=== PATIENT | female | born 1985 ===

== ENCOUNTER 2017-05-24 07:51 | Inpatient (IN) | payer MEDICAID, SELFPAY ==
[2017-05-24 08:49] VITALS: BMI 33.8
[2017-05-24] MEDS ORDERED: Lactated Ringer's 1,000 ML IV SCH ×2 (08:49→11:00)
--- NOTE | 2017-05-24 08:53 | OBHP ---
Datetime: 05/24/2017 08:33 IP Adm Impression: Term, intrauterine IP Admit Plan: Observation/Evaluation Admit Comment, IP Provider: 31 yo edc 05/27 by lmp _ 12wk us presents w/ c/o painful ctsx sinc e 6am, onst of on 05/23 @ 17:00. Denies srom or decreased fm pmhx: denies pshx: denies nkda medic: pnv; feso4 shx: denies etoh, drugs or tobacco I:39.4wks Labor Eval FHR with possible early and late decels P: observe for labor Doppler readjusted- check FHR Pt signed off to dr amgana Pelvic Type - PN: Adequate Extremities - PN: Normal Abdomen - PN: Normal Lungs - PN: Normal Heart - PN: Normal Neurologic - PN: Normal HEENT - PN: Normal General - PN: Normal Presentation-Admit: Vertex FHR - Baseline A Provider: 140 Comments, ACOG Physical Exam: gbs neg/ri/ rh+ Vital Signs Provider: Within Normal Limits IP Chief Complaint: Uterine contractions Dilatation, Provider: 3 Genitourinary Exam: Normal
[2017-05-24] MEDS ORDERED: Bupivacaine HCl 0.25% PF (10 ml) Inj ONE (09:39)
[2017-05-24] MEDS ORDERED: Fentanyl/Bupivacaine HCl 250 ML EPI ONE (09:39)
--- NOTE | 2017-05-24 09:48 | OBADHP ---
Datetime: 05/24/2017 09:23 Admit Comment, IP Provider: 31 year old at 39+4wks GA, EDC 7/5 by LMP _ 12wk us presents wit h painful ctx since 600am, initial onset of contractions was on 05/23 @ 17:00. Admits Good movem ent. Denies VB, LOF. OBHX: , no complications with previous or current labs: GBS: neg, GC/CT: neg, HepBsAg: neg, HIV/RPR negative, RH+, Rubella immune, PMH: denies Pshx: denies NKDA medic: pnv; feso4 shx: denies etoh, drugs or tobacco obhx: x2 A: 31 year old at 39+4wks GA P:admit to unit -labor protocol -cbc, cmp, type and screen -LR 1L bolus -anesthesia consult for epidural Marilee Cassidy PGY1 OB Hsopitalist Addendum: Pt seen by me. Agree w/ above. 31 yo at 39+4 wks in labor. Ane sthesia placing epidural now. FHT reassuring. GBS negative. (ES) Extremities - PN: Normal Abdomen - PN: Normal Lungs - PN: Normal Heart - PN: Normal HEENT - PN: Normal General - PN: Normal IP Hx Assessment: The History has been Reviewed and is Current Vital Signs Provider: Reviewed; Within Normal Limits IP Chief Complaint: Uterine contractions NICHD Variability Prov Fetus A: Moderate 6-25bpm NICHD Decel Fetus A IP Provider: None EGA AdmitDate IP: 39.4 IP Adm Impression: Term, intrauterine IP Admit Plan: Admit to unit; Initiate labor protocol Datetime: 05/24/2017 08:33 Pelvic Type - PN: Adequate Neurologic - PN: Normal Presentation-Admit: Vertex FHR - Baseline A Provider: 140 Comments, ACOG Physical Exam: gbs neg/ri/ rh+ Dilatation, Provider: 3 Genitourinary Exam: Normal
[2017-05-24 09:58] LABS: BASO % 0.3 % (0.0-2.0); EOS # 0.2 K/uL (0.0-0.7); EOS % 1.6 % (0.0-4.0); HEMOGLOBIN 11.5 g/dL (12.0-16.0); LYMPH # 2.3 K/uL (1.0-4.3); LYMPH % 19.9 % (20.0-40.0); MEAN CORPUSCULAR HEMOGLOBIN 26.2 pg (27.0-31.0); MEAN CORPUSCULAR HGB CONC 32.6 g/dL (33.0-37.0); MEAN PLATELET VOLUME 9.2 fl (7.2-11.7); MONO # 0.7 K/uL (0.0-0.8); MONO % 5.8 % (0.0-10.0); NEUT # 8.3 K/uL (1.8-7.0); NEUT % 72.4 % (50.0-75.0); RBC 4.4 Mil/uL (3.80-5.20); RED CELL DISTRIBUTION WIDTH 15.4 % (11.5-14.5); WHITE BLOOD COUNT 11.5 K/uL (4.8-10.8)
[2017-05-24 10:11] LABS: ALB/GLOB RATIO 1.1 (1.0-2.1); ALT/SGPT 19 U/L (9-52); AST/SGOT 30 U/L (14-36); BLOOD UREA NITROGEN 6 mg/dl (7-17); CALCIUM 9.7 mg/dL (8.4-10.2); GFR AFRICAN-AMERICAN > 60; GFR NON-AFRICAN AMERICAN > 60
[2017-05-24 10:18] LABS: MEAN CELL VOLUME 80.4 fl (81.0-99.0)
[2017-05-24 14:26] VITALS: BP 138/88; PULSE 99; RESP 20; TEMP 98.3; O2SAT 99
[2017-05-24] MEDS ORDERED: Oxytocin 30 units/LR 500ML 30 U/500 ML BAG IV ONE (15:02)
--- NOTE | 2017-05-24 15:29 | OBPN ---
Datetime: 05/24/2017 15:25 IP Progress Impression: Normal progression of labor IP Procedures: Artificial ROM; Sterile Vag Exam IP Progress Plan: Continue present management Membranes, Provider: Ruptured Amniotic Fluid Color, Provider: Clear IP Progress Note Comment: 31 yo at 39+4 wks in labor FHT reassuring, GBS negative Anticipate VD Vital Signs Provider: Reviewed NICHD Accel Fetus A IP Provider: 15X15 Dilatation, Provider: 10 Effacement, Provider: 100 Station, Provider: -2 NICHD Decel Fetus A IP Provider: Early Datetime: 05/24/2017 09:23 NICHD Variability Prov Fetus A: Moderate 6-25bpm Datetime: 05/24/2017 08:33 FHR - Baseline A Provider: 140 Presentation-Admit: Vertex
[2017-05-24] MEDS ORDERED: Benzocaine/Menthol SPRAY TOP PRN (15:36)
[2017-05-24] MEDS: Oxytocin 30 units/LR 500ML 30 U/500 ML BAG IV SCH ×5 (15:36→17:40)
[2017-05-24] MEDS ORDERED: Oxycodone/Acetaminophen 5/325 mg Tab PO PRN ×2 (15:36)
--- NOTE | 2017-05-24 15:55 | OBDS ---
DELIVERY PERSONNEL Delivery Doctor: Kay Stahl MD Airflight Attendants Supervisor: Rosemary Resident: Christel Cassidy MATERNAL INFORMATION Delivery Anesthesia: Epidural Medications in Delivery: Pitocin 30 units in 500 mls, Lidocain Estimated Blood Loss (ml): 250 Maternal Complications: None Provider Comments: Patient progressed to complete and pushed to deliver a viable female throu gh clear fluid at 15:31. Apgars 9/9, weight of 3305g, 7#4.6 Mouth and nares bulb suctioned. Infant placed on mothers abdomen. Cord was clamped and cut. Cord blood was collected. Placenta delivered spo ntaneously and intact with three vessel cord at 1536. 2nd degree laceration repaired with 2-0 vicryl rapide and 3-0v. Pt and baby tolerated the procedure well. No compliactions. EBL 250mL EBL: 250 cc LABOR SUMMARY EDC: 05/27/2017 00:00 No. Babies in Womb: 1 Labor Anesthesia: Epidural LABOR INFORMATION Onset of Labor: 05/24/2017 05:00 Oxytocin: N/A Group B Beta Strep: Negative Steroids Given: None Reason Steroids Not Administered: Not Applicable VAGINAL DELIVERY Laceration Repair Note: 2nd degree laceration repaired with 2-0 vicryl rapide and 3-0v.
[2017-05-25 06:25] LABS: BASO % 0.3 % (0.0-2.0); EOS # 0.3 K/uL (0.0-0.7); EOS % 1.7 % (0.0-4.0); LYMPH # 3.3 K/uL (1.0-4.3); LYMPH % 21.6 % (20.0-40.0); MEAN CELL VOLUME 80.5 fl (81.0-99.0); MEAN CORPUSCULAR HEMOGLOBIN 26.3 pg (27.0-31.0); MEAN CORPUSCULAR HGB CONC 32.7 g/dL (33.0-37.0); MEAN PLATELET VOLUME 8.5 fl (7.2-11.7); MONO % 6.8 % (0.0-10.0); NEUT # 10.6 K/uL (1.8-7.0); NEUT % 69.6 % (50.0-75.0); RBC 3.42 Mil/uL (3.80-5.20); RED CELL DISTRIBUTION WIDTH 15.3 % (11.5-14.5); WHITE BLOOD COUNT 15.2 K/uL (4.8-10.8)
[2017-05-25] MEDS ORDERED: Multivitamin With Minerals Tab PO SCH (09:00)
--- NOTE | 2017-05-25 22:57 | OBPPN ---
Datetime: 05/25/2017 20:52 PP Pain Prov: Within normal limits PP Nausea Prov: Denies PP Flatus Prov: Yes PP BM Prov: No PP Breasts Prov: Normal PP Heart Prov: Normal PP Lungs Prov: Normal PP Abdomen/Uterus Prov: Normal PP Lochia Prov: Normal PP Vulva/Perineum Prov: Normal PP CVA Tenderness Prov: Normal PP Extremities Prov: Normal PP Impression Prov: Normal progression PP Plan Prov: Continue present management PP Progress Note Prov: 31 yo female on PPD2 initially presented with contraction at weeks 39 +4 days. Pt reports mild pelvic pain controlled with pain meds. ambulating well with no dizziness. pt i s without difficulty. tolerating PO diet well. Lochia is less than menses volume. repor ts passing gas per rectum but no BM yet. Denies fever, chills, nausea, vomiting, dizziness or calf pa in. PE: Gen: AAO X3, resting comfortably with the baby in bed, NAD LUNGS: CTA B/L, no wheezing, rhonchi or rales CVS: RRR, S1, S2 NL ABDOMEN: nontender, +BS, firm fundus at umbilical level, soft, appropriate TTP. EXTREMITIES: No edema, negative Deedee's SIGN, calves non-tender Neuro/psych: AAO X3, no grossly focal deficit, preserved affect and mood. Assessment: 31 yo female s/p delivery on 05/24/17. pt is afebrile, tolerating pain meds an d tolerating PO. Pt will continue monitoting and will be re-evaluated for tomorrow's discharge. OBH ADDENDUM: pt seen _ exmined by me. agree with above assessment and plan. IP PP Procedures: None Vital Signs Provider PP: Reviewed
--- NOTE | 2017-05-26 10:43 | OBDCSUM ---
Datetime: 05/26/2017 08:07 Discharged to, Provider: Home Follow up at, Provider: [facility] Disch Instr Activity: Normal activity Disch Instr Diet: Regular Discharge Instructions, Provider: Routine instructions given Discharge Diagnosis, Provider: Term Delivered Follow up in weeks, Provider: 4-6 weeks Disch Referrals: None Contraception discussed, Prov: Yes Discharge Comment, Provider: DISCHARGE INSTRUCTIONS: Encourage PNV 1 tab po q/day Ibuprofen 600 mg 1 tab po prn q6 if moderate pain . Ambulatory with caution, nothing per vagina, no heavy lifting, avoid stairs, if excessive bleeding or fever without relief from Tylenol go to ED OB Hospitalist on-call...Pt seen on rounds this morning. She feels fine. Tolerating diet/ambulatg ing without difficulty. [place]
--- NOTE | 2017-05-26 10:43 | OBPPN ---
Datetime: 05/26/2017 06:53 PP Pain Prov: Abnormal PP Nausea Prov: Denies PP Flatus Prov: Yes PP Breasts Prov: Not Done PP Heart Prov: Normal PP Lungs Prov: Normal PP Abdomen/Uterus Prov: Normal PP Lochia Prov: Normal PP Vulva/Perineum Prov: Not Done PP CVA Tenderness Prov: Normal PP Extremities Prov: Normal PP Impression Prov: Normal progression PP Plan Prov: Continue present management PP Progress Note Prov: 31 yo female on PPD2 reports moderate pelvic pain despite with pain meds . ambulating well with no dizziness. pt is without difficulty. tolerating PO diet well. Lochia is less than menses volume. reports passing gas per rectum but no BM yet. Denies fever, chill s, nausea, vomiting, dizziness or calf pain. PE: Gen: AAO X3, resting comfortably with the baby in bed, NAD LUNGS: CTA B/L, no wheezing, rhonchi or rales CVS: RRR, S1, S2 NL ABDOMEN: nontender, +BS, firm fundus at umbilical level, soft, appropriate TTP. EXTREMITIES: No edema, negative Deedee's SIGN, calves non-tender Neuro/psych: AAO X3, no grossly focal deficit, preserved affect and mood. Assessment: 31 yo female s/p delivery on 05/24/17. pt reports moderate pain despite on paulette n meds. pt is afebrile and tolerating PO. Pt will continue monitoting and will be discharged today. Sultan Rogers, PGY1 OB Hospitalist on-call...Pt seen on rounds this morning. She feels fine. Tolerating diet/ambulati ng without difficulty. MAHNDO - mundoahrge home and follow up in 6w...FeSO4 for asymptomatic anemia (low MCV) Vital Signs Provider PP: Reviewed
== END 2017-05-26 12:00 | disposition home or self-care (01) | DRG 775 ==
LOC: H.EROB2 07:51 → H.L&D 09:16 → MERGE 09:16 → H.OB/GYN 18:13
PROVIDERS: ADMIT Obstetrics & Gynecology; ATTEND Obstetrics & Gynecology
PROC: 10E0XZZ Delivery of Products of Conception, External Approach (ICD-10-PCS; principal; 2017-05-24)
PROC: 0KQM0ZZ Repair Perineum Muscle, Open Approach (ICD-10-PCS; 2017-05-24)
PROC: 4A1HXCZ Monitoring of Products of Conception, Cardiac Rate, External Approach (ICD-10-PCS; 2017-05-24)
DX: O70.1 Second degree perineal laceration during delivery (principal); Z37.0 Single live birth; D64.9 Anemia, unspecified; O99.02 Anemia complicating childbirth; O77.0 Labor and delivery complicated by meconium in amniotic fluid

== ENCOUNTER 2019-04-19 09:09 | Emergency (ER) | payer SELFPAY ==
[2019-04-19 09:18] VITALS: BMI 31.1
[2019-04-19 09:19] VITALS: RESP 17; TEMP 97.9; O2SAT 99
[2019-04-19] MEDS ORDERED: Sodium Chloride 0.9% 1,000 ML IV STA (10:15)
[2019-04-19] MEDS ORDERED: Iohexol 240 (50 ml) PO ONE (10:23)
[2019-04-19] MEDS ORDERED: Iohexol 240 (50 ml) ONE (10:35)
[2019-04-19 10:52] LABS: BASO % 0.5 % (0.0-2.0); EOS # 0.2 K/uL (0.0-0.7); EOS % 3.2 % (0.0-4.0); HEMOGLOBIN 13.8 g/dL (12.0-16.0); LYMPH # 1.8 K/uL (1.0-4.3); LYMPH % 30.4 % (20.0-40.0); MEAN CELL VOLUME 82.5 fl (81.0-99.0); MEAN CORPUSCULAR HEMOGLOBIN 27.3 pg (27.0-31.0); MEAN CORPUSCULAR HGB CONC 33.1 g/dL (33.0-37.0); MEAN PLATELET VOLUME 7.8 fl (7.2-11.7); MONO # 0.7 K/uL (0.0-0.8); MONO % 11.1 % (0.0-10.0); NEUT # 3.3 K/uL (1.8-7.0); NEUT % 54.8 % (50.0-75.0); RBC 5.04 Mil/uL (3.80-5.20); RED CELL DISTRIBUTION WIDTH 13.5 % (11.5-14.5); WHITE BLOOD COUNT 6.1 K/uL (4.8-10.8)
[2019-04-19 11:02] LABS: ALB/GLOB RATIO 1.3 (1.0-2.1); ALBUMIN 4.5 g/dL (3.5-5.0); ALT/SGPT 33 U/L (9-52); AST/SGOT 31 U/L (14-36); BLOOD UREA NITROGEN 15 mg/dl (7-17); GFR NON-AFRICAN AMERICAN > 60; LIPASE 56 U/L (23-300)
--- NOTE | 2019-04-19 11:15 | ED PDOC ---
HPI: Abdomen Time Seen by Provider: 04/19/19 09:25 Chief Complaint (Nursing): GI Problem Chief Complaint (Provider): abd pain , diarrhea History Per: Mixed Livestock Farmer ([id number]) Onset/Duration Of Symptoms: Days (2), Intermittent Episodes, Gradual Current Symptoms Are (Timing): Still Present Severity: Moderate Location Of Pain/Discomfort: Diffuse Quality Of Discomfort: Cramping Associated Symptoms: Nausea, Diarrhea, Loss Of Appetite. denies: Vomiting Alleviating Factors: None Additional Complaint(s): 33yo female c/o crampy abd pain starting lower abd radiating to upper abd, associated w multiple episodes diarrhea, recently black however took 6 tabs of bismuth salicylate over last 2 days. Denies hematemesis, BRBPR, weakness or urinary symptoms. Past Medical History Reviewed: Historical Data, Nursing Documentation, Vital Signs Vital Signs: Last Vital Signs Temp 97.9 F 04/19/19 09:18 Pulse 69 04/19/19 09:18 Resp 17 04/19/19 09:18 BP 121/84 04/19/19 09:18 Pulse Ox 99 04/19/19 09:18 Primary Care Provider: FAMILY PROVIDER,NO - Medical History PMH: No Chronic Diseases - Surgical History Surgical History: No Surg Hx - Family History Family History: States: Unknown Family Hx - Social History Current smoker - smoking cessation education provided: No - Home Medications Home Medications: Ambulatory Orders Medication Instructions Recorded [id number]/Iron/Folic Acid/Dha 1 each PO DAILY #30 cap 09/24/16 [Prena1 Nae Softgel] Pnv No.95/Ferrous Fum/Folic AC 1 tab PO DAILY MDD 1 05/24/17 [ Vitamin Tablet] Ibuprofen [Motrin Tab] 600 mg PO Q6 PRN #30 tab 05/26/17 Multimineral/Multivitamin 1 tab PO DAILY tab 05/26/17 [Therapeutic-M Tab] Sennosides A and B [Senokot Tab] 17.2 mg PO HS #30 tab 05/26/17 oxyCODONE/Acetaminophen [Percocet 1 tab PO Q4 PRN #20 tab 05/26/17 5/325 mg Tab] Dicyclomine [Bentyl] 10 mg PO QID PRN #12 cap 04/19/19 Ibuprofen [Motrin Tab] 600 mg PO Q6 PRN #15 tab 04/19/19 Loperamide [Loperamide HCl] 2 mg PO QID PRN #15 cap 04/19/19 - Allergies Allergies/Adverse Reactions: Allergies Allergy/AdvReac Type Severity Reaction Status Date / Time No Known Allergies Allergy Verified 04/19/19 09:26 Review of Systems Constitutional: Positive for: Malaise Cardiovascular: Negative for: Chest Pain Respiratory: Negative for: Shortness of Breath Gastrointestinal: Positive for: Nausea, Abdominal Pain, Diarrhea. Negative for: Constipation, Hematochezia, Hematemesis, Rectal Pain Genitourinary Female: Negative for: Dysuria, Hematuria Musculoskeletal: Negative for: Neck Pain, Back Pain Skin: Negative for: Rash, Lesions Neurological: Negative for: Weakness, Numbness Physical Exam - Reviewed Nursing Documentation Reviewed: Yes Vital Signs Reviewed: Yes - Physical Exam Appears: Positive for: Non-toxic, No Acute Distress Head Exam: Positive for: ATRAUMATIC, NORMAL INSPECTION, NORMOCEPHALIC Skin: Positive for: Normal Color, Warm, DRY Eye Exam: Positive for: EOMI, Normal appearance, PERRL ENT: Positive for: Normal ENT Inspection Neck: Positive for: Normal, Painless ROM Cardiovascular/Chest: Positive for: Regular Rate, Rhythm Respiratory: Positive for: CNT, Normal Breath Sounds Gastrointestinal/Abdominal: Positive for: Soft, Tenderness (RLQ). Negative for: Guarding Back: Positive for: Normal Inspection Extremity: Positive for: Normal ROM Neurological/Psych: Positive for: Awake, Alert, Normal Tone, Symmetric/Intact Strength - Laboratory Results Result Diagrams: 04/19/19 10:40 04/19/19 10:40 Lab Results: Total Bilirubin 0.4 mg/dl (0.2-1.3) 04/19/19 10:40 AST 31 U/L (14-36) 04/19/19 10:40 ALT 33 U/L (9-52) 04/19/19 10:40 Alkaline Phosphatase 88 U/L (38-126) 04/19/19 10:40 Total Protein 7.8 G/DL (6.3-8.2) 04/19/19 10:40 Albumin 4.5 g/dL (3.5-5.0) 04/19/19 10:40 Globulin 3.3 gm/dL (2.2-3.9) 04/19/19 10:40 Albumin/Globulin Ratio 1.3 (1.0-2.1) 04/19/19 10:40 Lipase 56 U/L (23-300) 04/19/19 10:40 - ECG O2 Sat by Pulse Oximetry: 99 Medical Decision Making Medical Decision Making: check labs, given RLQ obtain CT abd pelv r/o appendicitis initiate IVF and bentyl labs clinically unremarkable Accession No. : [id number] Patient Name / ID : FANY MASON / [id number] Exam Date : 04/19/2019 12:52:37 ( Approved ) Study Comment : Sex / Age : F / 33Y Creator : Sidney Carranza MD Dictator : Sidney Carranza MD Optical Engineering Manager : Electrical Maintenance Mechanic : Sidney Carranza MD Approver2 : Report Date : 04/19/2019 14:41:06 My Comment : Date of service: 04/19/2019 PROCEDURE: CT Abdomen and Pelvis with contrast HISTORY: RLQ tenderness, diarrea COMPARISON: None. TECHNIQUE: Intravenous contrast dose: 95.2 cc Omnipaque 300. Radiation dose: Total exam DLP = 761.6 for mGy-cm. This CT exam was performed using one or more of the following dose reduction techniques: Automated exposure control, adjustment of the mA and/or kV according to patient size, and/or use of iterative reconstruction technique. FINDINGS: LOWER THORAX: Unremarkable. LIVER: Hepatic steatosis. No focal masses. No intrahepatic bile duct dilatation or perihepatic ascites. GALLBLADDER AND BILE DUCTS: Unremarkable. PANCREAS: Unremarkable. No gross lesion or ductal dilatation. SPLEEN: Unremarkable. ADRENALS: Unremarkable. No mass. KIDNEYS AND URETERS: Unremarkable. No hydronephrosis. No solid mass. VASCULATURE: Unremarkable. No aortic aneurysm. No atherosclerotic calcification or mural plaque present. BOWEL: Inflammatory changes terminal ileum extending to the ileocecal valve. Small bowel proximal to this is mildly dilated. APPENDIX: A normal appendix is visualized in it's entirety. PERITONEUM: Unremarkable. No free fluid. No free air. LYMPH NODES: Unremarkable. No enlarged lymph nodes. BLADDER: Unremarkable. REPRODUCTIVE: Unremarkable. Incidental finding(s): Air identified in the cervix and vagina likely the sequela of recent instrumentation. No evidence of vesico vaginal fistula or enterovaginal fistula. BONES: No acute fracture. OTHER FINDINGS: None. IMPRESSION: CT manifestations of inflammatory bowel disease affecting distal ileum, terminal ileum-ileocecal valve region. Small bowel more proximal to this is slightly dilated. No abnormalities to suggest acute appendicitis. No right lower quadrant inflammatory processes identified. [facility] refer to [facility] for workup of possibly IBD, GI and Rx bentyl and imodium, indications for return to ER discussed. Disposition - Clinical Impression Clinical Impression: Inflammatory bowel disease, Diarrhea - Patient ED Disposition Is Patient to be Admitted: No - Disposition Referrals: [facility] [Outside] Reece Lantigua MD, PhD [Staff Provider] - Disposition: Routine/Home Disposition Time: 14:01 Condition: STABLE Additional Instructions: Return to ER for any worse or new symptoms. You will require workup via a hoe runner for possible inflammatory bowel disease. Take medications as directed. Drink plenty of fluids, avoid dairy/cheese or milk. Regrese a la mahamed de emergencias para richi si hay sntomas peores o nuevos. Necesitar un examen a travs de un gastroenterlogo para valeria posible enfermedad inflamatoria intestinal. [place] los medicamentos segn las indicaciones. Marlena muchos lquidos, evite los lcteos / queso o leche. Prescriptions: Dicyclomine [Bentyl] 10 mg PO QID PRN #12 cap PRN Reason: Gi Distress Ibuprofen [Motrin Tab] 600 mg PO Q6 PRN #15 tab PRN Reason: Pain, Moderate (4-7) Loperamide [Loperamide HCl] 2 mg PO QID PRN #15 cap PRN Reason: Diarrhea Instructions: Diarrhea in Adolescents and Adults, Inflammatory Bowel Disease (DC) Forms: Mir [employer] ([place]) Print Language: ENGLISH
[2019-04-19] MEDS ORDERED: Iohexol 300 100 ML IJ ONE (12:52)
[2019-04-19] MEDS ORDERED: Sodium Chloride 0.9% 50 ML IV ONE (12:52)
--- NOTE | 2019-04-19 14:45 | CT ---
Date of service: 04/19/2019 PROCEDURE: CT Abdomen and Pelvis with contrast HISTORY: RLQ tenderness, diarrea COMPARISON: None. TECHNIQUE: Intravenous contrast dose: 95.2 cc Omnipaque 300. Radiation dose: Total exam DLP = 761.6 for mGy-cm. This CT exam was performed using one or more of the following dose reduction techniques: Automated exposure control, adjustment of the mA and/or kV according to patient size, and/or use of iterative reconstruction technique. FINDINGS: LOWER THORAX: Unremarkable. LIVER: Hepatic steatosis. No focal masses. No intrahepatic bile duct dilatation or perihepatic ascites. GALLBLADDER AND BILE DUCTS: Unremarkable. PANCREAS: Unremarkable. No gross lesion or ductal dilatation. SPLEEN: Unremarkable. ADRENALS: Unremarkable. No mass. KIDNEYS AND URETERS: Unremarkable. No hydronephrosis. No solid mass. VASCULATURE: Unremarkable. No aortic aneurysm. No atherosclerotic calcification or mural plaque present. BOWEL: Inflammatory changes terminal ileum extending to the ileocecal valve. Small bowel proximal to this is mildly dilated. APPENDIX: A normal appendix is visualized in it's entirety. PERITONEUM: Unremarkable. No free fluid. No free air. LYMPH NODES: Unremarkable. No enlarged lymph nodes. BLADDER: Unremarkable. REPRODUCTIVE: Unremarkable. Incidental finding(s): Air identified in the cervix and vagina likely the sequela of recent instrumentation. No evidence of vesico vaginal fistula or enterovaginal fistula. BONES: No acute fracture. OTHER FINDINGS: None. IMPRESSION: CT manifestations of inflammatory bowel disease affecting distal ileum, terminal ileum-ileocecal valve region. Small bowel more proximal to this is slightly dilated. No abnormalities to suggest acute appendicitis. No right lower quadrant inflammatory processes identified.
[2019-04-19 15:27] VITALS: BP 130/84; PULSE 72
== END 2019-04-19 14:58 | disposition home or self-care (01) ==
LOC: H.ER 09:09
DX: K52.9 Noninfective gastroenteritis and colitis, unspecified (principal); R19.7 Diarrhea, unspecified
CPT/HCPCS: 74177; 80053; 81025; 83690; 85025; 96360; 99284; J7030; Q9966; Q9967